=== PATIENT | female | born 1940 | race Caucasian/White ===

== ENCOUNTER 2024-08-16 04:08 | Inpatient (IN) | payer MEDICARE, SELFPAY ==
[2024-08-16] VITALS (21 sets, daily range): BP systolic 102–212; BP diastolic 44–90; PULSE 76–896; RESP 16–29; TEMP 36.3–37.1; O2SAT 91–100; BMI 34.9
--- NOTE | 2024-08-16 | ECHO_ITS ---
Patient Info Name: Preeti Burns Age: 83 years : 1940 Gender: Female Ht: 64 in Wt: 185 lbs BSA: 1.98 m2 HR: 94 bpm BP: 136 / 58 mmHg Heart Rhythm: Sinus Rhythm Technical Quality: Good Exam Date: 08/16/2024 10:32 AM Exam Location: Echo Lab Patient Status: Outpatient Admit Date: 08/16/2024 Staff Ordering Physician: Elizabeth Underwood MD Ranch Rider: Shaina Thompson RDCS Attending Provider: Elizabeth Underwood MD Exam Type: CA echo doppler color flow Study Info Indications - PULMONARY EDEMA Complete two-dimensional, color flow and Doppler transthoracic echocardiogram is performed. Summary 1. Left ventricular chamber dimension is normal. 2. There is mildly increased left ventricular wall thickness. 3. Left ventricular systolic function is mildly reduced with an ejection fraction by Biplane Method of Discs of 48 %. 4. There is hypokinesis of the inferolateral wall. 5. Right ventricular systolic function is normal. 6. Left atrial chamber dimension is mildly enlarged. 7. There is mild mitral valve regurgitation. 8. There is mild tricuspid valve regurgitation. Left Ventricle There is hypokinesis of the inferolateral wall. Left ventricular systolic function is mildly reduced with an ejection fraction by Biplane Method of Discs of 48 %. Left ventricular chamber dimension is normal. There is mildly increased left ventricular wall thickness. The left ventricular diastolic function is abnormal. Right Ventricle Linear artifact in right ventricle suggestive of catheter(s), pacemaker lead(s), or ICD lead(s). Right ventricular chamber dimension is normal. Right ventricular systolic function is normal. Left Atria Left atrial chamber dimension is mildly enlarged. Right Atria Linear artifact in the right atrium suggestive of catheter(s), pacemaker lead(s), or ICD lead(s). Right atrial chamber dimension is normal. Atrial Septum Intact interatrial septum visualized by color flow imaging. Aortic Valve The aortic valve is probable trileaflet. There is no aortic valve stenosis. There is trace aortic valve regurgitation. There is mild aortic valve calcification. Pulmonic Valve The pulmonic valve is not well visualized. Mitral Valve The mitral valve has thickened leaflets. There is mild mitral valve regurgitation. The mitral valve annulus is mildly calcified. Tricuspid Valve There is mild tricuspid valve regurgitation. Pericardium/Pleural There is no pericardial effusion. Inferior Vena Cava IVC is normal size. Aorta The aortic root size at the sinus of Valsalva is normal. Left Ventricular Outflow Tract Name Value Normal LVOT 2D LVOT Diameter 1.9 cm LVOT Doppler LVOT Peak Gradient 5 mmHg LVOT Mean Gradient 2 mmHg LVOT VTI 17 cm LVOT VTI/AV VTI Ratio 0.7 LVOT Stroke Volume 46 ml LVOT CO 3.8 l/min LVOT CI 1.9 l/min/m2 Pulmonic Valve Name Value Normal ---------
--- NOTE | ~2024-08-16 | XR_ITS ---
Portable chest x-ray Comparison: 11/14/2016 Clinical History: Shortness of breath Findings: Extensive hazy pulmonary disease is present, most compatible moderate pulmonary edema. Ca rdiomediastinal silhouette is stable, with pacemaker device. Chronic right rib fracture deformities a re noted. Impression: Extensive groundglass pulmonary disease, most compatible with moderate pulmonary edema. Pacemaker device. Reviewed, dictated and finalized at location . Impression: Extensive groundglass pulmonary disease, most compatible with moderate pulmonar y edema. Pacemaker device.
--- NOTE | 2024-08-16 04:15 | ECG_ITS ---
Test Date: 2024-08-16 04:17:40 Measurements Intervals [place] Rate: 88 P: 40 IL: 211 QRS: -45 QRSD: 110 T: 37 QT: 367 QTc: 445 Interpretive Statements SINUS RHYTHM WITH FIRST DEGREE AV BLOCK LOW QRS VOLTAGE IN PRECORDIAL LEADS LEFT VENTRICULAR HYPERTROPHY AND ST-T CHANGE POSSIBLE ANTERIOR MYOCARDIAL INFARCTION , PROBABLY OLD [ ST DEPRESSION IN ANTEROLATERAL LEADS, CONSIDER SUBENDOCARDIAL INJURY BASELINE ARTIFACT- V1-V3 ABNORMAL ECG No previous ECG available for comparison Electronically Signed On 08-16-2024 05:49:19 CDT by Bart Fraser D.O.
--- NOTE | 2024-08-16 04:18 | ED.GENADULT ---
HPI - General Adult General Chief complaint: Shortness of Breath/Dyspnea Stated complaint: sob Time Seen by Provider: 08/16/24 04:14 History of Present Illness HPI narrative: 83-year-old female presenting to the emergency department for evaluation for acute worsening shortness of breath. Patient does have prior history [place] and hypertension but has no prior history of CHF and does not take a water pill. Patient states yesterday he she was celebrating her sister's birthday and may have had more salty food usual. Patient states when she went to bed she was feeling okay but in the middle night she woke up very short of breath. Patient denies any chest pain with this. Patient did call EMS when EMS arrived the scene states she was tachycardic and was saturating in 60s on room air. Patient was placed on 15 L by non-rebreather and transported the emergency department. Upon arrival emergency department patient states she was feeling improved compared to when she was at home. Patient was transition from the 15 L to BiPAP. Related Data Allergies Allergy/AdvReac Type Severity Reaction Status Date / Time celecoxib Allergy Unknown Verified 07/31/10 13:14 Penicillins Allergy Unknown Verified 07/31/10 13:14 Contrast Media Allergy Unknown Rash Uncoded 11/14/16 21:30 Review of Systems Review of Systems: All systems reviewed & are unremarkable except as noted in HPI and below [facility] Family History Family History (Updated 07/31/10 @ 13:20 by DOCTOR UNKNOWN) Other Cerebrovascular accident Diabetes mellitus Family history of malignant neoplasm Family history of osteoarthritis Hypertension Social History Social History Alcohol intake: never Exam Narrative: APPEARANCE: Nontoxic-appearing HEAD: normocephalic, atraumatic. EYES: PERRLA/EOMI, conjunctivae clear. NOSE: Normal no drainage EARS:TMS clear with good light reflex. THROAT: Pharynx clear, no exudate. NECK: Supple. No adenopathy, no masses. RESPIRATORY: Some wheeze bilaterally but patient did have rhonchi bilaterally as well. CARDIOVASCULAR: Regular rate and rhythm without murmurs rubs or gallops. ABDOMINAL: Soft, nontender, nondistended, normal bowel sounds MUSCULOSKELETAL: Moves all extremities. No pitting NEURO: Alert. Cranial nerves II through XII intact. Grossly intact SKIN: Warm, dry. Normal Color Course Course Emergency Course: Patient was admitted to the IMU. Vital Signs Vital signs: Vital Signs Temperature 97.9 F 08/16/24 04:07 Pulse Rate 94 08/16/24 04:07 Respiratory Rate 16 08/16/24 04:07 Blood Pressure 212/90 H 08/16/24 04:07 Pulse Oximetry 98 08/16/24 04:07 Oxygen Delivery BiPAP 08/16/24 04:07 Temperature 97.9 F 08/16/24 04:07 Pulse Rate 83 08/16/24 05:35 Respiratory Rate 18 08/16/24 05:35 Blood Pressure 136/58 L 08/16/24 05:35 Pulse Oximetry 99 08/16/24 05:35 Oxygen Delivery BiPAP 08/16/24 04:15 Medical Decision Making MDM Narrative Medical decision making narrative: 83-year-old female presenting ED for evaluation for hypoxia and shortness of breath. Patient was transitioned to BiPAP upon arrival the emergency department and did tolerate this well. Patient was also treated with an in-line breathing treatment. On re-evaluation patient states she does feel significantly improved. Patient is afebrile with no leukocytosis and a hemoglobin of 10.9. Patient's CMP is similar to her baseline. Patient is diabetic and did have an elevated blood glucose of 353. Patient was treated with IV insulin. Patient's BNP was also elevated at approximately 4:00 p.m.. Patient was treated with IV Lasix. Patient's initial blood pressure did improve significantly without medications and dropped for of approximately 220 systolic to 138 systolic. Prior to going to the floor patient's blood pressure did begin to increase. Patient did receive 40 mg of IV Lasix the emergency department and prior to going to the IMU
[2024-08-16] MEDS: ALBUTEROL SULFATE NEB 2.5 MG/3 ML INH INHALATION (04:22)
[2024-08-16 04:26] LABS: Glucose Point of Care 331 mg/dl (65-105)
[2024-08-16 04:29] LABS: Basophils Absolute Auto 0.1 K/mm3 (0.0-0.1); Basophils Percent Auto 0.7 % (0.2-1.2); Eosinophils Absolute Auto 0.3 K/mm3 (0-0.3); Eosinophils Percent Auto 4.5 % (0-4.4); Hematocrit 35.7 % (37.0-47.0); Hemoglobin 10.9 g/dL (12.0-15.0); Immature Granulocyte Absolute 0.04 K/mm3 (0.00-0.031); Immature Granulocyte Percent A 0.5 % (0-0.5); Lymphocytes Absolute Auto 2.67 K/mm3 (0.9-3.2); Lymphocytes Percent Auto 36.4 % (18.3-44.2); Mean Corpuscular HGB Conc 30.5 g/dl (32-36); Mean Corpuscular Volume 91.8 fl (80-100); Mean Platelet Volume 11.5 fl (7.4-10.4); Monocytes Absolute Auto 0.5 K/mm3 (0.1-0.6); Monocytes Percent Auto 7.4 % (2.6-8.5); Neutrophils Absolute Auto 3.7 K/mm3 (1.3-6.7); Neutrophils Percent Auto 50.5 % (45.5-73.1); Platelet Count Result 185 k/mm3 (150-375); Red Blood Count 3.89 M/mm3 (4.2-5.4); Red Cell Distribution Width 13.9 % (11.5-14.5); White Blood Count 7.3 K/mm3 (4.5-10.0)
[2024-08-16 04:47] LABS: Alanine Aminotransferase 16 U/L (6-35); Albumin Level 4.1 g/dL (3.5-5.1); Alkaline Phosphatase 107 U/L (38-126); Anion Gap 14 mmol/L (4-12); Aspartate Amino Transferase 23 U/L (14-36); Bilirubin,Total 0.4 mg/dL (0.2-1.3); Blood Urea Nitrogen 27 mg/dL (7-17); Calcium 9.7 mg/dL (8.4-10.2); Carbon Dioxide 25 mmol/L (22-30); Chloride 97 mmol/L (98-107); Estimated CRCL calculation 37 ml/min; Estimated Glomerular Filt Rate 48; Glucose 353 mg/dL (65-110); Potassium 4.1 mmol/L (3.4-5.0); Sodium 136 mmol/L (137-145)
[2024-08-16 04:56] LABS: NT Pro B Type Natriuretic Pept 1660 pg/mL (19.9-100)
[2024-08-16] MEDS: INSULIN HUMAN REGULAR (*BKC) 100 UNITS/ML IV PUSH (05:02)
[2024-08-16 05:03] LABS: Influenza A QL RT-PCR Negative (Negative); Influenza B QL RT-PCR Negative (Negative); RSV RNA, RT-PCR Negative (Negative); SARS-CoV-2 RNA PCR Negative (Negative)
[2024-08-16] MEDS: FUROSEMIDE INJ 40 MG/4 ML VIAL IV PUSH ×3 (05:07→20:24)
--- NOTE | 2024-08-16 05:44 | ECG_ITS ---
Test Date: 2024-08-16 05:56:26 Measurements Intervals [place] Rate: 81 P: 36 WI: 202 QRS: -45 QRSD: 110 T: 10 QT: 378 QTc: 440 Interpretive Statements SINUS RHYTHM WITH FIRST DEGREE AV BLOCK INTRAVENTRICULAR CONDUCTION DELAY LOW QRS VOLTAGE IN PRECORDIAL LEADS LEFT VENTRICULAR HYPERTROPHY WITH ST-T CHANGE ST DEPRESSION IN ANTEROLATERAL LEADS- CONSIDER SUBENDOCARDIAL INJURY BASELINE ARTIFACT- II, III, AVR, AVL, AVF, V2 ABNORMAL ECG Compared to ECG 08/16/2024 04:17:40 NO SIGNIFICANT CHANGE Electronically Signed On 08-16-2024 07:55:56 CDT by Bart Fraser D.O.
--- NOTE | 2024-08-16 05:47 | PC.NURSE ---
Purewick placed on patient.
[2024-08-16] MEDS: hydrALAZINE HCL 20 MG/ML VIAL 10 MG IV PUSH (05:53)
[2024-08-16 06:12] LABS: Troponin I 0.044 ng/mL (0.000-0.034)
[2024-08-16 06:23] LABS: Hemoglobin A1C 8.2 % (<5.7)
--- NOTE | 2024-08-16 06:40 | ADMGEN ---
This patient, Preeti Burns, was admitted to IMU Room 211-01. Patient/family oriented to hospital policies and general routines including ID bracelet, bed and alarms, visiting hours, pain management, procedures, bathroom and other care routines, personal items, smoking policy, room service/diet, and visiting hours. Information on how to activate the Rapid Response Team has been discussed. Patient/Family are encouraged to report perceived risks to care and to ask questions if they do not understand what they are told or what they should do.
--- NOTE | 2024-08-16 09:22 | ECG_ITS ---
Test Date: 2024-08-16 10:25:41 Measurements Intervals [place] Rate: 84 P: 52 ND: 199 QRS: -42 QRSD: 110 T: 8 QT: 398 QTc: 471 Interpretive Statements SINUS RHYTHM WITH FIRST DEGREE AV BLOCK INTRAVENTRICULAR CONDUCTION DELAY LOW QRS VOLTAGE IN PRECORDIAL LEADS LEFT VENTRICULAR HYPERTROPHY WITH ST-T CHANGE CONSIDER ANTERIOR INFARCT, AGE INDETERMINATE INFERIOR INFARCT, AGE INDETERMINATE BASELINE ARTIFACT- I, II, III, AVR, AVL, AVF ABNORMAL ECG Compared to ECG 08/16/2024 05:56:26 ST SEGMENT DEPRESSION RESOLVED Electronically Signed On 08-16-2024 11:58:25 CDT by Bart Fraser D.O.
--- NOTE | 2024-08-16 09:28 | PM.IMHP ---
H&P: HPI History of Present Illness Date/Time: 08/16/24 09:28 Chief Complaint: Shortness of breath Narrative: 83 year old female hx CAD, prior pacemaker ([employer]), diabetes, admitted for acute respiratory failure. Reports feeling well prior, more fatigued in recent months but no chest pain or shortness of breath. Reports taking more naps during the day. Hasn't noticed symptoms otherwise. Hasn't been going out as much because her sister hasn't and they usually do things together but hasn't noticed a change walking around at the grocery store Had an episode of dizziness 08/14 when she woke up that resolved with no other symptoms. Yesterday morning woke up at 3am with shortness of breath and dizziness, episode of coughing. EMS was called, initially required 15L O2 and Bipap, but was weaned to 3L Chest x-ray with pulmonary edema. NT proBNP elevated and troponin uptrending Outpatient records not currently available. Pharmacy is [facility] in [place]. Prior medical care at [facility]--pacer placed. 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 Delroy Judd in [place], Review of Systems Review of Systems: 12 point ROS negative except as noted in HPI [facility] Family History Family History Other Cerebrovascular accident Diabetes mellitus Family history of malignant neoplasm Family history of osteoarthritis Hypertension Social History Social History Smoking status: Former smoker Alcohol intake: never Substance use: never Do You Feel Safe in your Home?: Yes Lack of Transportation: No Lack of Food: Never True Current Housing: I Have Housing Concerned About Future Housing: No Difficulty Paying Gas/Electric Bills: No Difficulty Paying for Meds: No Currently Unemployed: No Education: High School Diploma/GED Difficulty w/ Childcare or Family Care: No Spiritual care concerns: No Comments Hx cholecystectomy, appendectomy, ovarian cyst removal, back surgery, bilateral knee replacement, [employer] pacer implant Meds Home Medications and Allergies Home Medications Medication Instructions Recorded Confirmed Type acetaminophen 500 mg tablet 500 mg PO DAILY PRN Pain, Mild 08/16/24 08/16/24 History ascorbic acid (vitamin C) 500 mg 1,000 mg PO DAILY 08/16/24 08/16/24 History tablet aspirin 81 mg tablet 81 mg PO DAILY 08/16/24 08/16/24 History atorvastatin 20 mg tablet 20 mg PO DAILY 08/16/24 08/16/24 History clopidogrel 75 mg tablet 75 mg PO DAILY 08/16/24 08/16/24 History flaxseed 1,000 mg capsule 1,000 mg PO DAILY 08/16/24 08/16/24 History folic acid 1 mg tablet 1 mg PO DAILY 08/16/24 08/16/24 History lisinopril 40 mg tablet 40 mg PO DAILY 08/16/24 08/16/24 History magnesium 200 mg tablet 400 mg PO DAILY 08/16/24 08/16/24 History mecobalamin (vitamin B12) 1,000 1,000 mcg PO DAILY 08/16/24 08/16/24 History mcg chewable tablet (B12 Active) metformin 500 mg tablet 500 mg PO DAILY 08/16/24 08/16/24 History metoprolol succinate 25 mg 25 mg PO DAILY 08/16/24 08/16/24 History tablet,extended release 24 hr milk thistle 175 mg tablet 175 mg PO DAILY 08/16/24 08/16/24 History omeprazole 20 mg tablet,delayed 20 mg PO DAILY 08/16/24 08/16/24 History release polysaccharide iron complex 150 mg 150 mg PO DAILY 08/16/24 08/16/24 History iron capsule Allergies Allergy/AdvReac Type Severity Reaction Status Date / Time celecoxib Allergy Unknown Verified 07/31/10 13:14 Penicillins Allergy Unknown Verified 07/31/10 13:14 Contrast Media Allergy Unknown Rash Uncoded 11/14/16 21:30 Vital Signs Vital Signs - 24 hr 08/16/24 04:07 08/16/24 04:22 08/16/24 04:15 Temperature 97.9 F Pulse Rate 94 90 101 H Respiratory Rate 16 23 H 28 H Blood Pressure 212/90 H Pulse Oximetry 98 99 Oxygen Delivery BiPAP BiPAP Oxygen Flow Rate 08/16/24 04:28 08/16/24 04:39 08/16/24 05:35 Temperature Pulse Rate 83 80 83 Respi
[2024-08-16 10:28] LABS: Prothrombin Time 13.2 Seconds (11.1-14.7)
[2024-08-16 10:29] LABS: Partial Thromboplastin Time 23.7 Seconds (22.3-36.8)
--- NOTE | 2024-08-16 11:01 | PM.PNCARD ---
Progress Note: A&P Assessment and Plan (1) Flash pulmonary edema: Code(s): J81.0 - Acute pulmonary edema Status: Acute Assessment and Plan: Respiratory status improved with BP control and furosemide. She is no longer requiring BiPAP. (2) Coronary artery disease: Code(s): I25.10 - Atherosclerotic heart disease of syc[place] coronary artery without angina pectoris Status: Acute Assessment and Plan: Inferior [place] in 2016 with multiple stents placed. Does not report any anginal symptoms since that time. It seems that her CAD is stable. However, her troponin has now increased to 3.490. Will keep her NPO after midnight for [facility] tomorrow. Continue heparin gtt. Resume ASA and statin as well. Subjective Date/time seen: 08/16/24 11:01 Interval history: Preeti Burns is an 83 year old female with coronary artery disease (inferior [place] in 2016 s/p stenting to the RCA and OM), and pacemaker. This is a former patient of Dr. 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 She came to the hospital because of an episode of acute shortness of breath. Cardiology has been asked to see her because of elevated troponin levels. The patient denies any history of coronary artery disease but as indicated above she does have a history and previous stenting - I suspect the patient has some memory problems. She has been in her usual state of health until early this morning when she awoke feeling short of breath and coughing. Her sister called EMS and she was brought to the emergency department where she was found to be hypertensive and chest Xray showed moderate pulmonary edema. She improved with BiPAP and was given hydralazine and lasix. Troponin levels were drawn and elevated at 0.044 and subsequently 1.900. She denies having any chest pain. At the time of my evaluation she is resting comfortably in bed and her only complaint is intermittent bilateral leg cramps. Review of Systems Review of Systems: All systems reviewed & are unremarkable except as noted in HPI and below Exam Const: General: comfortable, no acute distress, alert and awake Orientation/consciousness: patient oriented x3 HENMT: Head: normal to inspection Eyes: General: appearance normal, both eyes and all related structures Pupils: Equal, round and reactive pupils present Neck: Neck: normal visual inspection, supple and no JVD Carotids: normal carotid upstroke Resp: Effort & Inspection: normal respiratory effort Auscultation: not clear to auscultation bilaterally and rales Other: On supplemental oxygen Cardio: Rate: regular rate Rhythm: regular rhythm Heart sounds: S1 normal heart sound present, S2 normal heart sound present and no murmurs GI: Auscultation: normal bowel sounds Skin: General skin exam: normal color Neuro: General: patient oriented x3 Cranial nerves: Yes Equal, round and reactive pupils present Other: memory issues Extrem: General: normal to inspection Psych: Appearance: grossly normal Mental Status: mental status grossly normal Objective Data Vital Signs Vital Signs: Vital Signs - 24 hr 08/16/24 04:07 08/16/24 04:22 08/16/24 04:15 Temperature 36.6 C Pulse Rate 94 90 101 H Respiratory Rate 16 23 H 28 H Blood Pressure 212/90 H Pulse Oximetry 98 99 Oxygen Delivery BiPAP BiPAP Oxygen Flow Rate 08/16/24 04:28 08/16/24 04:39 08/16/24 05:35 Temperature Pulse Rate 83 80 83 Respiratory Rate 29 H 22 H 18 Blood Pressure 172/72 H 136/58 L Pulse Oximetry 98 99 Oxygen Delivery Oxygen Flow Rate 08/16/24 06:07 08/16/24 06:40 08/16/24 07:31 Temperature 36.4 C L Pulse Rate 80 90 86 Respiratory Rate 22 H 28 H 22 H Blood Pressure 150/51 H Pulse Oximetry 100 98 99 Oxygen Delivery BiPAP BiPAP Oxygen Flow Rate 08/16/24 07:42 08/16/24 07:55 08/16/24 09:04 Temperature 36.7 C Pulse Rate 86 Respiratory Rate 19 Blood Pressure 131/44 L Puls
[2024-08-16] MEDS: HEPARIN SODIUM 5,000 UNITS/ML VIAL 3500 UNITS IV PUSH (11:48)
[2024-08-16] MEDS: ASPIRIN 81 MG CHEWABLE TABLET 324 MG PO (11:49)
[2024-08-16] MEDS: HEPARIN SOD/D5W 100 UNITS/ML 25,000 UNITS/250 ML BAG 7 UNITS IV CONT (11:49)
[2024-08-16 12:37] LABS: Basophils Absolute Auto 0.1 K/mm3 (0.0-0.1); Basophils Percent Auto 0.5 % (0.2-1.2); Eosinophils Percent Auto 0.4 % (0-4.4); Hemoglobin 11.2 g/dL (12.0-15.0); Immature Granulocyte Absolute 0.04 K/mm3 (0.00-0.031); Immature Granulocyte Percent A 0.4 % (0-0.5); Lymphocytes Absolute Auto 1.67 K/mm3 (0.9-3.2); Lymphocytes Percent Auto 15.2 % (18.3-44.2); Mean Corpuscular HGB Conc 31.1 g/dl (32-36); Mean Corpuscular Hemoglobin 27.5 pg (26-34); Mean Corpuscular Volume 88.5 fl (80-100); Monocytes Percent Auto 9.5 % (2.6-8.5); Neutrophils Absolute Auto 8.2 K/mm3 (1.3-6.7); Platelet Count Result 207 k/mm3 (150-375); Red Blood Count 4.07 M/mm3 (4.2-5.4)
[2024-08-16 12:40] LABS: Anion Gap 9 mmol/L (4-12); Blood Urea Nitrogen 29 mg/dL (7-17); Calcium 10.3 mg/dL (8.4-10.2); Carbon Dioxide 32 mmol/L (22-30); Chloride 93 mmol/L (98-107); Estimated CRCL calculation 36 ml/min; Estimated Glomerular Filt Rate 53; Glucose 214 mg/dL (65-110); Magnesium 1.3 mg/dL (1.6-2.3); Phosphorus 3.2 mg/dL (2.5-4.5); Potassium 3.8 mmol/L (3.4-5.0); Sodium 134 mmol/L (137-145)
[2024-08-16 13:20] LABS: Hemoglobin A1C 8.3 % (<5.7)
[2024-08-16] MEDS: INSULIN ASPART (*BKC) 100 UNITS/ML SUB-Q (13:23)
[2024-08-16] MEDS: MAGNESIUM SULF 2 GM/WATER 50ML 2 GM/50 ML BAG IVPB (15:08)
--- NOTE | 2024-08-16 15:30 | PC.NURSE ---
Patient vocalized her concern for having a cardiac catheterization tomorrow. Attempted to answer questions as appropriate. Continued to express her fear of having a reaction to IV contrast media as she has had reactions in the past where she was red and hot all over even with treatment. Orders were entered for prophylactic prednisone and benadryl. Discussed with LUAN Guerrero. She will relay this concern to interventionalist as additional prednisone or benadryl may be given for better prophylaxis.
[2024-08-16 18:00] LABS: Glucose Point of Care 195 mg/dl (65-105)
[2024-08-16] MEDS: predniSONE 40 MG, predniSONE 10 MG 50 MG PO ×2 (18:00→20:24)
[2024-08-16 18:18] LABS: Partial Thromboplastin Time 52.7 Seconds (22.3-36.8)
[2024-08-16] MEDS: lisinopriL 20 MG TABLET 40 MG PO (18:27)
[2024-08-16] MEDS: HEPARIN SODIUM 5,000 UNITS/ML VIAL 4000 UNITS IV PUSH (18:27)
[2024-08-16] MEDS: ATORVASTATIN 40 MG TABLET PO (20:24)
[2024-08-17] VITALS (32 sets, daily range): BP systolic 129–195; BP diastolic 42–141; PULSE 63–95; RESP 13–25; TEMP 36.2–36.9; O2SAT 93–100
[2024-08-17 00:48] LABS: Partial Thromboplastin Time 94.8 Seconds (22.3-36.8)
[2024-08-17] MEDS: INSULIN ASPART (*BKC) 100 UNITS/ML SUB-Q ×4 (00:59→20:50)
[2024-08-17 03:10] LABS: Glucose Point of Care 310 mg/dl (65-105)
[2024-08-17] MEDS: predniSONE 40 MG, predniSONE 10 MG 50 MG PO (03:53)
[2024-08-17 05:04] LABS: Basophils Percent Auto 0.1 % (0.2-1.2); Hemoglobin 11.5 g/dL (12.0-15.0); Immature Granulocyte Absolute 0.03 K/mm3 (0.00-0.031); Immature Granulocyte Percent A 0.4 % (0-0.5); Lymphocytes Absolute Auto 1.03 K/mm3 (0.9-3.2); Lymphocytes Percent Auto 12.4 % (18.3-44.2); Mean Corpuscular HGB Conc 31.1 g/dl (32-36); Mean Corpuscular Hemoglobin 27.6 pg (26-34); Mean Corpuscular Volume 88.9 fl (80-100); Mean Platelet Volume 11.9 fl (7.4-10.4); Monocytes Absolute Auto 0.2 K/mm3 (0.1-0.6); Monocytes Percent Auto 1.8 % (2.6-8.5); Neutrophils Absolute Auto 7.1 K/mm3 (1.3-6.7); Neutrophils Percent Auto 85.3 % (45.5-73.1); Platelet Count Result 198 k/mm3 (150-375); Red Blood Count 4.16 M/mm3 (4.2-5.4); Red Cell Distribution Width 13.9 % (11.5-14.5); White Blood Count 8.3 K/mm3 (4.5-10.0)
[2024-08-17 05:26] LABS: Anion Gap 12 mmol/L (4-12); Blood Urea Nitrogen 41 mg/dL (7-17); Calcium 9.9 mg/dL (8.4-10.2); Carbon Dioxide 28 mmol/L (22-30); Chloride 94 mmol/L (98-107); Estimated CRCL calculation 30 ml/min; Estimated Glomerular Filt Rate 43; Glucose 274 mg/dL (65-110); Potassium 4.3 mmol/L (3.4-5.0); Sodium 134 mmol/L (137-145)
[2024-08-17 06:37] LABS: Glucose Point of Care 268 mg/dl (65-105)
--- NOTE | 2024-08-17 06:56 | PM.IMPN ---
Progress Note: A&P Assessment and Plan (1) Acute respiratory failure: Code(s): J96.00 - Acute respiratory failure, unspecified whether with hypoxia or hypercapnia Status: Acute Assessment and Plan: No oxygen at home, no shortness breath. Pulmonary edema on x-ray, weaned off bipap with lasix --Continue treatment for pulmonary edema as noted --Wean O2 for sats >92% (2) Flash pulmonary edema: Code(s): J81.0 - Acute pulmonary edema Status: Acute Assessment and Plan: Likely 2/2 CAD/NSTEMI. Acute shortness of breath and pulmonary edema requiring bipap, weaned off this morning and doing well on room air --Holding lasix 40 BID IV, 40mg PO x1 tonight. Restart IV lasix tomorrow if able. Follow creatinine --Trend BMP, mag, phos --Monitoring on tele --Echo pending (3) Elevated troponin: Code(s): R79.89 - Other specified abnormal findings of blood chemistry Status: Acute Assessment and Plan: Troponins trending up Cardiology consulted, planning cardiac cath 08/17, NPO post midnight Heparin drip, aspirin, statin, resume home plavix (4) Diabetes: Code(s): E11.9 - Type 2 diabetes mellitus without complications Status: Acute Assessment and Plan: On oral meds at home --NPO for cath today, resume diet --Start lispro 4 units TID with meals, SSI, Lantus 10 units hs & titrate --May be more elevated 2/2 stress or may need to start insulin at home (5) NSTEMI (non-ST elevated myocardial infarction): Code(s): I21.4 - Non-ST elevation (NSTEMI) myocardial infarction Status: Acute Assessment and Plan: 08/17/24 PCI Conclusion: 1. Right coronary dominant circulation with previously deployed stents in the large trunk of the right coronary artery and in the RPL branch as well as in the OM1 branch of the circumflex. 2. High-grade stenosis in the distal right coronary rather complex area of disease involving the distal right, the ostium of both the RPDA and RPL branches with high-grade lesions. angiographically this is the culprit for the patient's presentation 3. Patent stent in the RPL branch with moderate stenosis distal to that of 70-80% 4. mild LAD disease which appears angiographically unchanged Plan Planning transfer to [facility] for complex PCI Time Spent With Patient Time: 75 minutes Subjective Date/time seen: 08/17/24 06:56 Interval history: Creatinine trending up, 1.2. Held IV lasix this morning. Had cardiac cath this afternoon, planning transfer for complex PCI. Called [facility] and accepted by hospitalist and cardiology, waiting for a bed. Blood sugars elevated, starting mealtime insulin Weaned to 1L O2. hasn't been out of bed but feeling ok. No chest pain or shortness of breath at rest Review of Systems Review of Systems: 12 point ROS negative except as noted in HPI Exam Narrative: General - Awake and alert. No acute distress Eyes - PERRLA, EOM intact ENT - No thrush, No erythema Neck - No noticeable or palpable swelling Lymph Nodes - No lymphadenopathy Cardiovascular - RRR no m/r/g, no JVD Lungs: Clear to auscultation, No wheezing, use of accessory muscles, crackles to bilateral bases Skin - Skin warm and dry, no wounds or rashes Abdomen - Normal bowel sounds, abdomen soft and nontender Extremities - Trace lower extremity edema, cyanosis or clubbing Musculoskeletal - 5/5 strength, normal range of motion, no swollen or erythematous joints. Neurological ? Alert and oriented x 3, CN 2-12 grossly intact. Psych: Normal mood and affect Objective Data Vital Signs Vital Signs: Vital Signs - 24 hr 08/16/24 07:31 08/16/24 07:42 08/16/24 07:55 Temperature 98.0 F Pulse Rate 86 86 Respiratory Rate 22 H 19 Blood Pressure 131/44 L Pulse Oximetry 99 99 94 Oxygen Delivery BiPAP Oxygen Flow Rate 08/16/24 09:04 08/16/24 11:19 08/16/24 16:00 Temperature 97.4 F L 97.4 F
[2024-08-17 07:55] LABS: Partial Thromboplastin Time 88.6 Seconds (22.3-36.8)
[2024-08-17] MEDS: METOPROLOL SUCCINATE EXT REL 25 MG TABCR PO (08:52)
[2024-08-17] MEDS: CLOPIDOGREL BISULFATE 75 MG TABLET PO (08:52)
[2024-08-17] MEDS: PANTOPRAZOLE 40 MG TABLET PO (08:52)
[2024-08-17] MEDS: ASPIRIN 81 MG CHEWABLE TABLET PO (08:53)
[2024-08-17] MEDS: diphenhydrAMINE HCl INJ 50 MG/ML VIAL IV PUSH (10:19)
--- NOTE | 2024-08-17 11:39 | WPDMODSED ---
Moderate Sedation Note-Pt Data Patient Data Diagnosis: non ST-elevation OK Present Complaint: shortness of breath Procedure to be performed/Plan: left heart catheterization, possible PCI Allergies Allergy/AdvReac Type Severity Reaction Status Date / Time celecoxib Allergy Unknown Verified 07/31/10 13:14 Penicillins Allergy Unknown Verified 07/31/10 13:14 Contrast Media Allergy Unknown Rash Uncoded 11/14/16 21:30 Home Medications Medication Instructions Recorded Confirmed Type acetaminophen 500 mg tablet 500 mg PO DAILY PRN Pain, Mild 08/16/24 08/16/24 History ascorbic acid (vitamin C) 500 mg 1,000 mg PO DAILY 08/16/24 08/16/24 History tablet aspirin 81 mg tablet 81 mg PO DAILY 08/16/24 08/16/24 History atorvastatin 20 mg tablet 20 mg PO DAILY 08/16/24 08/16/24 History clopidogrel 75 mg tablet 75 mg PO DAILY 08/16/24 08/16/24 History flaxseed 1,000 mg capsule 1,000 mg PO DAILY 08/16/24 08/16/24 History folic acid 1 mg tablet 1 mg PO DAILY 08/16/24 08/16/24 History lisinopril 40 mg tablet 40 mg PO DAILY 08/16/24 08/16/24 History magnesium 200 mg tablet 400 mg PO DAILY 08/16/24 08/16/24 History mecobalamin (vitamin B12) 1,000 1,000 mcg PO DAILY 08/16/24 08/16/24 History mcg chewable tablet (B12 Active) metformin 500 mg tablet 500 mg PO DAILY 08/16/24 08/16/24 History metoprolol succinate 25 mg 25 mg PO DAILY 08/16/24 08/16/24 History tablet,extended release 24 hr milk thistle 175 mg tablet 175 mg PO DAILY 08/16/24 08/16/24 History omeprazole 20 mg tablet,delayed 20 mg PO DAILY 08/16/24 08/16/24 History release polysaccharide iron complex 150 mg 150 mg PO DAILY 08/16/24 08/16/24 History iron capsule Current Medications: Active Medications Acetaminophen (Acetaminophen 325 Mg Tablet) 650 mg PO Q4H PRN PRN Reason: Mild Pain (1-3) or Fever Aspirin (Aspirin 81 Mg Chewable Tablet) 81 mg PO DAILY@0800 ELLI Last Admin: 08/17/24 08:53 Dose: 81 mg Atorvastatin Calcium (Atorvastatin 40 Mg Tablet) 40 mg PO HS [facility] Last Admin: 08/16/24 20:24 Dose: 40 mg Clopidogrel Bisulfate (Clopidogrel Bisulfate 75 Mg Tablet) 75 mg PO DAILY [facility] Last Admin: 08/17/24 08:52 Dose: 75 mg Dextrose (Dextrose 50% 25 Gm/50 Ml Syringe) 12.5 gm IV PUSH PRN PRN; Protocol PRN Reason: Hypoglycemia Furosemide (Furosemide Inj 40 Mg/4 Ml Vial) 40 mg IV PUSH Q12HR [facility] Last Admin: 08/16/24 20:24 Dose: 40 mg Glucagon (Glucagon For Inj 1 Mg Vial) 1 mg IM PRN PRN; Protocol PRN Reason: Hypoglycemia Glucose (Glucose Oral Gel 15 Gm Of Glucse In 37.5 Gm Tube) 15 gm PO PRN PRN; Protocol PRN Reason: Hypoglycemia Insulin Aspart (Insulin Aspart (*Bkc) 100 Units/Ml) 2 - 5 units SUB-Q Q6HR [facility]; Protocol Last Admin: 08/17/24 06:30 Dose: 3 units Lisinopril (Lisinopril 20 Mg Tablet) 40 mg PO DAILY [facility] Metoprolol Succinate (Metoprolol Succinate Ext Rel 25 Mg Tabcr) 25 mg PO DAILY [facility] Last Admin: 08/17/24 08:52 Dose: 25 mg Pantoprazole Sodium (Pantoprazole 40 Mg Tablet) 40 mg PO QAM [facility] Last Admin: 08/17/24 08:52 Dose: 40 mg Perflutren Lipid Microsphere (Perflutren Lipid Microspheres 1.5 Ml Vial Diluted To 10 Ml Total Volume) 0 ml IV PUSH ONCE PRN; Protocol PRN Reason: adequate visualization Stop: 08/19/24 05:45 Sedation/Anesthesia: No previous sedation/anesthesia problems (including family history). [facility] Family History Family History Other Cerebrovascular accident Diabetes mellitus Family history of malignant neoplasm Family history of osteoarthritis Hypertension Social History Social History Smoking status: Former smoker Alcohol intake: never Substance use: never Do You Feel Safe in your Home?: Yes Lack of Transportation: No Lack of Food: Never True Current Housing: I Have Housing Concerned About Future Housing: No Difficulty Paying Gas/Electric Bills: No Difficulty Paying for Meds: No Currently Unemployed: No Edu
--- NOTE | 2024-08-17 12:11 | WPDCARDPROC ---
Cardiac Cath Procedure Note Date of procedure:: 08/17/24 Performing physician:: Delroy Funes MD Indication:: acute coronary syndrome/ non ST elevation [place] Brief clinical history:: this is an 83-year-old woman who previously is known to have coronary disease with stenting of her right coronary artery and then of the OM circumflex branch back in 2016 and 2017. She receives her cardiac care elsewhere. She also has a history of an implanted pacemaker following her interventions. Details of this are unknown to me. She came to this hospital with an episode of significant dyspnea associated with a moderate troponin rise leading to the recommendation to proceed with a follow-up angiogram. Procedure Procedure performed:: Coronary angiography Sedation/Medication given:: fentanyl 50 mg Versed 2 mg case start time 11:45 a.m. case end time 12:05 p.m. sedation provided by Sheron Griffin RN trained observer Access site:: right femoral artery Estimated blood loss:: 30 cc Procedure note:: patient was brought to the cardiac catheterization lab in the postabsorptive state where the right femoral triangle was prepped draped in the normal fashion. Anesthesia was provided with 1% lidocaine infiltrated locally after this the modified Seldinger technique was used to puncture the right femoral artery and placed a 5 [place] vascular sheath. After this coronary angiography was to carried out. The left coronary artery was engaged and injected using 5 [place] FL4 catheters. The right coronary was engaged and injected 5 [place] JR4 catheter. The cineangiograms were then reviewed and the case was terminated. The patient had a ACT drawn upon terminating the case to determine if sheath removal can occur at this time or not. Heparin was discontinued On-call to the veterinarian laboratory animal care. Procedure was otherwise well tolerated and uncomplicated. She is taken to the holding area for post cath recovery and sheath removal. Findings:: Hemodynamics: Central aortic pressure is 160/ 62, left ventricle was not entered during this procedure the left main coronary artery is medium in size and is nicely patent the left anterior descending is a medium caliber artery extending down to and ending at the apex. The LAD has a very mild 30% stenosis in the midportion where the origin of a small diagonal branch takes its origin. The origin of this diagonal branch has an 80-90% stenosis. Angiographically this appears no different compared with 2016 the circumflex is a medium caliber artery giving rise to a medium-sized OM1 branch. There are no stenotic lesions in the circumflex. Previously deployed stent can be seen in the OM1 which is nicely patent without any loss of lumen. Right coronary artery is large in caliber and dominant to the posterior circulation. There is a long area of stent material from the proximal right coronary down to the 3rd portion of the artery just prior to the bifurcation. There is mild disease in the trunk of the right coronary but no significant stenosis is seen until they terminate mathew the RCA trunk just at the bifurcation where there is an 80-90% stenosis at the end of the stented area described above. The origin of both the RPDA and RPL branch both have 90% lesions as well. There is visible stent material in the ER PL branch which is patent there is 70-80% stenosis distal to the RPL stent. Conclusion:: 1. Right coronary dominant circulation with previously deployed stents in the large trunk of the right coronary artery and in the RPL branch as well as in the OM1 branch of the circumflex. 2. High-grade stenosis in the distal right coronary rather complex area of disease involving the distal right, the ostium of both the RPDA and RPL branches with high-grade lesions. angiographically this is the culprit for the patient's presentation 3. Patent stent in the RPL branch with moderate stenosis distal to that of 70-80% 4. mil
[2024-08-17 12:50] LABS: Activated Clotting Time 165 SEC (74-137)
[2024-08-17 15:10] LABS: Activated Clotting Time 134 SEC (74-137)
[2024-08-17] MEDS: SODIUM CHLORIDE 0.9% IV 1,000 ML 125 ML IV CONT (16:02)
[2024-08-17] MEDS: HEPARIN SOD/D5W 100 UNITS/ML 25,000 UNITS/250 ML BAG 7 UNITS IV CONT (16:55)
[2024-08-17] MEDS: FUROSEMIDE 40 MG TABLET PO (17:01)
[2024-08-17 17:52] LABS: Glucose Point of Care 195 mg/dl (65-105)
--- NOTE | 2024-08-17 18:32 | PC.NURSE ---
Patient was accepted to [facility] and assigned room number 438. Report given to Clair POLK at 1726. EMS ETA for 1930. Accepting Physician Dr. Aron Alatorre. Phone number [phone] Ext [phone].
[2024-08-17] MEDS: ATORVASTATIN 40 MG TABLET PO (20:16)
[2024-08-17 20:32] LABS: Glucose Point of Care 267 mg/dl (65-105)
[2024-08-17] MEDS: INSULIN GLARGINE (*BKC) 100 UNITS/ML 10 UNITS SUB-Q (20:51)
[2024-08-17 23:04] LABS: Partial Thromboplastin Time 38.2 Seconds (22.3-36.8)
--- NOTE | 2024-09-02 17:37 | PM.TDS ---
Transfer Discharge Sum: Prov Provider Date of admission: 08/16/24 11:38 Primary care physician: UNKNOWN,DOCTOR Admitting clinician: Elizabeth Underwood MD Consults: 08/16/24 Consult to Physician Routine Comment: spoke with Yolanda Liu @[phone](,) Consulting Provider: Yolanda Liu call person/MD group to consult: Cardiology Reason for consultation: Elevated Troponin, likely flash pulmonary edema Has provider been notified: Yes Receiving physician/facility: LUAN Villatoro NP 08/16/24 [facility] DS: Admitting Diagnosis Discharge Date 08/17/24 Admitting Diagnosis ACS DS: Discharge Diagnosis Discharge Diagnosis (1) NSTEMI (non-ST elevated myocardial infarction): Code(s): I21.4 - Non-ST elevation (NSTEMI) myocardial infarction Status: Acute (2) Coronary artery disease: Code(s): I25.10 - Atherosclerotic heart disease of [place] coronary artery without angina pectoris Status: Acute (3) Flash pulmonary edema: Code(s): J81.0 - Acute pulmonary edema Status: Acute Transfer Discharge Sum: Med Medications Active and Home Medications: Home Medications acetaminophen 500 mg tablet 500 mg PO DAILY PRN Pain, Mild 08/16/24 [History Confirmed 08/16/24] ascorbic acid (vitamin C) 500 mg tablet 1,000 mg PO DAILY 08/16/24 [History Confirmed 08/16/24] aspirin 81 mg tablet 81 mg PO DAILY 08/16/24 [History Confirmed 08/16/24] atorvastatin 20 mg tablet 20 mg PO DAILY 08/16/24 [History Confirmed 08/16/24] clopidogrel 75 mg tablet 75 mg PO DAILY 08/16/24 [History Confirmed 08/16/24] flaxseed 1,000 mg capsule 1,000 mg PO DAILY 08/16/24 [History Confirmed 08/16/24] folic acid 1 mg tablet 1 mg PO DAILY 08/16/24 [History Confirmed 08/16/24] lisinopril 40 mg tablet 40 mg PO DAILY 08/16/24 [History Confirmed 08/16/24] magnesium 200 mg tablet 400 mg PO DAILY 08/16/24 [History Confirmed 08/16/24] mecobalamin (vitamin B12) 1,000 mcg chewable tablet (B12 Active) 1,000 mcg PO DAILY 08/16/24 [History Confirmed 08/16/24] metformin 500 mg tablet 500 mg PO DAILY 08/16/24 [History Confirmed 08/16/24] metoprolol succinate 25 mg tablet,extended release 24 hr 25 mg PO DAILY 08/16/24 [History Confirmed 08/16/24] milk thistle 175 mg tablet 175 mg PO DAILY 08/16/24 [History Confirmed 08/16/24] omeprazole 20 mg tablet,delayed release 20 mg PO DAILY 08/16/24 [History Confirmed 08/16/24] polysaccharide iron complex 150 mg iron capsule 150 mg PO DAILY 08/16/24 [History Confirmed 08/16/24] Transfer Discharge Sum: Hosp Hospital Course Hospital course: 83 year old female hx CAD, prior pacemaker ([employer]), diabetes, admitted for acute respiratory failure. Reports feeling well prior, more fatigued in recent months but no chest pain or shortness of breath. Reports taking more naps during the day. Hasn't noticed symptoms otherwise. Hasn't been going out as much because her sister hasn't and they usually do things together but hasn't noticed a change walking around at the grocery store Had an episode of dizziness 08/14 when she woke up that resolved with no other symptoms. Morning prior to admission, woke up at 3am with shortness of breath and dizziness, episode of coughing. EMS was called, initially required 15L O2 and Bipap, but was weaned to 3L In the ED, Chest x-ray with pulmonary edema. NT proBNP elevated and troponin uptrending NSTEMI Elevated troponin--Troponin peaked at 3.49 prior to cath, then stopped trending. Started a heparin drip, aspirin, statin, home plavix Prior medical care at [facility]--pacer placed. Intravenous Therapy Nurse is Dr. Delroy Judd in [place], . Cardiology was consulted during admission and cardiac cath was done 08/[address] Funes 08/17/24 PCI Conclusion: 1. Right coronary dominant circulation with previously deployed stents in the large trunk of the right coronary artery and in the RPL branch as well as in the OM1 bra
== END 2024-08-17 23:20 | disposition short-term general hospital (02) | DRG 280 ==
LOC: ANHED 05:44 → ANHIMU 06:12
PROVIDERS: Internal Medicine; Specialist; Admitting Provider General Practice; Emergency Provider Emergency Medicine; Visit Provider Nurse Practitioner Acute Care
PROC: 4A023N7 Measurement of Cardiac Sampling and Pressure, Left Heart, Percutaneous Approach (ICD-10-PCS; CPT 93454; principal; 2024-08-17 10:30)
DX: I21.4 Non-ST elevation (NSTEMI) myocardial infarction (principal); J81.0 Acute pulmonary edema; J96.00 Acute respiratory failure, unspecified whether with hypoxia or hypercapnia; I25.10 Atherosclerotic heart disease of native coronary artery without angina pectoris; E11.9 Type 2 diabetes mellitus without complications; I25.2 Old myocardial infarction; I10 Essential (primary) hypertension; Z20.822 Contact with and (suspected) exposure to COVID-19; Z79.82 Long term (current) use of aspirin; Z79.02 Long term (current) use of antithrombotics/antiplatelets; Z79.84 Long term (current) use of oral hypoglycemic drugs; Z88.0 Allergy status to penicillin; Z95.0 Presence of cardiac pacemaker; Z87.891 Personal history of nicotine dependence; Z90.49 Acquired absence of other specified parts of digestive tract; Z96.653 Presence of artificial knee joint, bilateral; Z95.5 Presence of coronary angioplasty implant and graft
CPT/HCPCS: 36415; 71045; 80048; 80053; 82948; 83036; 83735; 83880; 84100; 84484; 85025; 85610; 85730; 87637; 93005; 93306; 93454; 94640; 96374; 96375; 99285; A9270; C1887; C1894; G0378; J0360; J1200; J1644; J1815; J1940; J2250; J3010; J3475; J7030; J7040; J7512